=== PATIENT | female | born 1975 ===

== ENCOUNTER 2017-11-10 13:38 | Observation (INO) | payer OTHER ==
[2017-11-10 13:39] VITALS: BMI 22.3
[2017-11-10] MEDS ORDERED: Sodium Chloride 0.9% 1,000 ML IV SCH (13:45)
[2017-11-10] MEDS ORDERED: Iodixanol 320 MG/ML 100 ML BOTTLE IV ONE (13:53)
--- NOTE | 2017-11-10 14:05 | CT ---
PROCEDURE: CT HEAD WITHOUT CONTRAST. HISTORY: code stroke COMPARISON: None available. TECHNIQUE: Axial computed tomography images were obtained through the head/brain without intravenous contrast. Radiation dose: Total exam DLP = 784.72 mGy-cm. This CT exam was performed using one or more of the following dose reduction techniques: Automated exposure control, adjustment of the mA and/or kV according to patient size, and/or use of iterative reconstruction technique. FINDINGS: HEMORRHAGE: No intracranial hemorrhage. BRAIN: Weller-white matter differentiation is preserved. There is no mass, mass effect or abnormal extra-axial fluid collection. There is no territorial infarction. VENTRICLES: The ventricles are normal in size, shape and configuration. CALVARIUM: The skull base and calvarium are normal. PARANASAL SINUSES: There are retention cysts/ polyps in the left maxillary sinus. The remaining included paranasal sinuses are predominantly clear. MASTOID AIR CELLS: Predominantly clear. OTHER FINDINGS: None. IMPRESSION: No acute intracranial abnormality. If there is a persistent focal neurologic deficit and an ongoing clinical concern for acute infarction, an MRI of the brain without intravenous contrast would be a more sensitive modality for evaluation of hyperacute/acute ischemic infarction. Important findings were discussed with Dr. Beronica Cormier in the ER on 11/10/2017 at 2 p.m.
[2017-11-10] MEDS ORDERED: Magnesium Sulfate 2 gm/50 ml 2 GM/50 ML BAG IVPB ONE (14:15)
--- NOTE | 2017-11-10 14:19 | ED PDOC ---
HPI:STROKE - Time Time: 13:40 - Historian Historian: Patient - Chief Complaint Chief Complaint: Numbness (left sided) - Onset Date: 11/10/17 Time: 12:50 Onset: Hours (x 1) - Timing Timing: Improved - Location Locate right:: Face, Upper extremity (left), Lower extremity (left) - Radiation Radiation: None - TPA Positive for Contraindication: Yes Reason tPA is not being Administered: NIH SS is 1(less than 3), without disabling deficit, with rapid improvement - Notes: Notes:: 42 years old female presents to the ED complaining of left sided numbness onset 1 hour. Patient states she experienced the numbness in her left facial side, left arm and left leg. She reports improvement of of symptoms in her leg and arm but persisted numbness in her face. Patient states she woke up this morning with chest discomfort. She denies any gait problem, weakness, headache, fever, or urinary problem. PMD: non provided NIHSS Stroke Scale - Date/Time Evaluation Performed Date Performed: 11/10/17 Time Performed: 14:00 When Was NIHSS Performed: Baseline - How Severe is the Stroke Level of Consciousness: 0=Alert LOC to Questions: 0=Both comments correct LOC to commands: 0=Obeys both correctly Best Gaze: 0=Normal Visual: 0=No visual loss Facial: 0=Normal Motor Arm - Left: 0=No drift Motor Arm - Right: 0=No drift Motor Leg - Left: 0=No drift Motor Leg - Right: 0=No drift Limb Ataxia: 0=Absent Sensory: 1=Mild to moderate loss Best Language: 0=No aphasia Dysarthia: 0=Normal articulation Extinction & Inattention (Neglect): 0=Normal, no object Score: 1 rTPA Inclusion/Exclusion - Refusal of Treatment Patient Refused Treatment: No - Inclusion Criteria for Altepase Patient is 18 years or Older: Yes The Clinical Diagnosis of Ischemic Stroke That is Causing a Potentially Disabling Neurological Deficit: No Time of Onset is Well Established to be Less Than 270 Minute Before Treatment Would Begin: Yes Risk/Benefit Discussed With Patient/Family Member Present: No Past Medical History Reviewed: Historical Data, Nursing Documentation, Vital Signs Vital Signs: Last Vital Signs Temp 98.0 F 11/10/17 14:15 Pulse 67 11/10/17 14:15 Resp 16 11/10/17 14:15 BP 145/92 H 11/10/17 14:15 Pulse Ox 100 11/10/17 14:15 - Medical History PMH: No Chronic Diseases - Surgical History Surgical History: No Surg Hx - Family History Family History: States: Unknown Family Hx - Social History Current smoker - smoking cessation education provided: No Alcohol: None Drugs: Denies - Home Medications Home Medications: Ambulatory Orders Medication Instructions Recorded Multivit-Min/Iron/Folic/Lun736 1 tab PO DAILY 11/10/17 [Hair, Skin and Nails Caplet] - Allergies Allergies/Adverse Reactions: Allergies Allergy/AdvReac Type Severity Reaction Status Date / Time No Known Allergies Allergy Verified 05/14/17 08:07 Review of Systems ROS Statement: Except As Marked, All Systems Reviewed And Found Negative Constitutional: Negative for: Fever, Weakness Genitourinary Female: Negative for: Dysuria, Hematuria Neurological: Positive for: Numbness (left side). Negative for: Weakness, Headache Physical Exam - Reviewed Nursing Documentation Reviewed: Yes Vital Signs Reviewed: Yes - Physical Exam Appears: Positive for: Non-toxic, No Acute Distress Head Exam: Positive for: ATRAUMATIC, NORMOCEPHALIC Skin: Positive for: Normal Color, Warm, Dry Eye Exam: Positive for: Normal appearance, EOMI, PERRL ENT: Positive for: Normal ENT Inspection Neck: Positive for: Normal, Painless ROM, Supple Cardiovascular/Chest: Positive for: Regular Rate, Rhythm. Negative for: Murmur Respiratory: Positive for: Normal Breath Sounds. Negative for: Respiratory Distress Gastrointestinal/Abdominal: Positive for: Normal Exam, Soft. Negative for: Tenderness Back: Positive for: Normal Inspection Extremity: Positive for: Normal ROM. Negative for: Pedal Edema, Swelling Neurologic/Psych: Positive for: Alert, hemodialysis lab technician II-XII (intact), Oriented, Cerebellar Tests (intact), Gait (steady). Negative for: Motor/Sensory Deficits , Aphasia, Facial Droop - Laboratory Results Result Diagrams: 11/10/17 14:15 11/10/17 14:15 - ECG O2 Sat by Pulse Oximetry: 100 (RA) Pulse Ox Interpretation: Normal Medical Decision Making Medical Decision Making: Time: 1340 Initial impression: Left sided numbness. Differential includes but not limited to acute CVA. Initial Plan: --BBK Type and Screen --CTA Head/Neck Code stroke --CMP --Hemoglobin A1C --Lipid Panel --Troponin --CBC --PTT --Prothrombin Time --Glucose, POC Time:1400 CT Head results were negative. CT Head FINDINGS: HEMORRHAGE: No intracranial hemorrhage. BRAIN: Weller-white matter differentiation is preserved. There is no mass, mass effect or abnormal extra-axial fluid collection. There is no territorial infarction. VENTRICLES: The ventricles are normal in size, shape and configuration. CALVARIUM: The skull base and calvarium are normal. PARANASAL SINUSES: There are retention cysts/ polyps in the left maxillary sinus. The remaining included paranasal sinuses are predominantly clear. MASTOID AIR CELLS: Predominantly clear. OTHER FINDINGS: None. IMPRESSION: No acute intracranial abnormality. If there is a persistent focal neurologic deficit and an ongoing clinical concern for acute infarction, an MRI of the brain without intravenous contrast would be a more sensitive modality for evaluation of hyperacute/acute ischemic infarction. Important findings were discussed with Dr. Beronica Cormier in the ER on 2017 at 2 p.m. Time: 1354 CT Head/ Neck FINDINGS: HEAD: Right: The intracranial internal carotid artery, and anterior and middle cerebral arteries are widely patent. Left: The intracranial internal carotid artery, and anterior and middle cerebral arteries are widely patent. Posterior circulation: The visualized intracranial vertebral arteries, basilar artery and posterior cerebral arteries are widely patent. Ther is no endoluminal filling defect to suggest thrombus. There is no intracranial saccular aneurysm. There is no abnormal enhancement on the postcontrast CT. NECK: There is a three vessel aortic arch. There is no stenosis at the origins of the great vessels at the level of the aortic arch. Right Carotid: On the right, the common carotid, internal carotid and external carotid arteries are widely patent. There is no hemodynamically significant stenosis in the internal carotid artery by neck skate criteria. Left Carotid: On the left, the common carotid, internal carotid and external carotid arteries are widely patent. There is no hemodynamically significant stenosis in the internal carotid artery by NASCET criteria. The vertebral arteries are widely patent. The visualized soft tissues of the neck are normal. The visualized brain and cervical spine are within normal limits. The lung apices are clear. IMPRESSION: No evidence of endoluminal thrombus, definite significant stenosis or occlusion. No evidence of hemodynamically significant stenosis in the internal carotid artery by NASCET criteria Time:[address] Vyas who will evaluate patient by telemetry. Dr. Vyas recommends patient is not a TPA candidate since N/H stroke score of 1 is low. Additionally, mild sensation deficit is rapidly improving and is not potentially disabling. Pending reevaluation. Time: 1421 Brain MRI w/o contrast was ordered. Patient will be admitted to practice. Scribe Attestation: Documented by Vivi Martin, acting as a scribe for Beronica Cormier MD. Provider Scribe Attestation: All medical record entries made by the Scribe were at my direction and personally dictated by me. I have reviewed the chart and agree that the record accurately reflects my personal performance of the history, physical exam, medical decision making, and the department course for this patient. I have also personally directed, reviewed, and agree with the discharge instructions and disposition. Disposition - Clinical Impression Clinical Impression: Left sided numbness - Patient ED Disposition Is Patient to be Admitted: Yes Discussed With DrSheldon: Kevin Cervantes Doctor Will See Patient In The: Office Counseled Patient/Family Regarding: Studies Performed, Diagnosis, Need For Followup - Disposition Disposition Time: 02:30 Condition: FAIR - Pt Status Changed To: Hospital Disposition Of: Observation - POA Present On Arrival: None Core Measure Indicators: Code Stroke
[2017-11-10] MEDS ORDERED: Magnesium Sulfate 2 gm/50 ml 2 GM/50 ML BAG ONE (14:23)
[2017-11-10 14:25] LABS: BASO % 0.6 % (0.0-2.0); EOS # 0.1 K/uL (0.0-0.7); EOS % 1.1 % (0.0-4.0); LYMPH % 27.8 % (20.0-40.0); MEAN CELL VOLUME 86.3 fl (81.0-99.0); MEAN CORPUSCULAR HEMOGLOBIN 28.5 pg (27.0-31.0); MEAN PLATELET VOLUME 10.3 fl (7.2-11.7); MONO # 0.4 K/uL (0.0-0.8); MONO % 5.3 % (0.0-10.0); NEUT # 4.7 K/uL (1.8-7.0); NEUT % 65.2 % (50.0-75.0); NRBC % 0.1 % (0.0-0.0); RBC 4.2 Mil/uL (3.80-5.20); RED CELL DISTRIBUTION WIDTH 13.7 % (11.5-14.5); WHITE BLOOD COUNT 7.1 K/uL (4.8-10.8)
[2017-11-10 14:36] LABS: ALB/GLOB RATIO 1.2 (1.0-2.1); ALBUMIN 3.7 g/dL (3.5-5.0); ALT/SGPT 29 U/L (9-52); AST/SGOT 23 U/L (14-36); BLOOD UREA NITROGEN 13 mg/dl (7-17); CALCIUM 8.8 mg/dL (8.4-10.2); GFR AFRICAN-AMERICAN > 60; GFR NON-AFRICAN AMERICAN > 60; HDL CHOLESTEROL 33 MG/DL (30-70)
--- NOTE | 2017-11-10 14:41 | CT ---
PROCEDURE: CTA HEAD AND NECK WITH CONTRAST HISTORY: code stroke COMPARISON: None available. TECHNIQUE: Initial noncontrast head CT was performed. Subsequently, CT angiogram of the head and neck were performed after the intravenous administration of 80 mL of Omnipaque 350. Contiguous 1.5mm thick images were obtained in the axial plane of the neck. 2-D coronal and sagittal MPR images were obtained. Imaging postprocessing was performed with 3-D images also obtained. A delayed contrast head CT was also obtained. This CT exam was performed using one or more of the following dose reduction techniques: Automated exposure control, adjustment of the mA and/or kV according to patient size, and/or use of iterative reconstruction technique. Contrast dose: 622.11 Radiation dose: Total exam DLP = 99 cc Visipaque 320 mGy-cm. FINDINGS: HEAD: Right: The intracranial internal carotid artery, and anterior and middle cerebral arteries are widely patent. Left: The intracranial internal carotid artery, and anterior and middle cerebral arteries are widely patent. Posterior circulation: The visualized intracranial vertebral arteries, basilar artery and posterior cerebral arteries are widely patent. Ther is no endoluminal filling defect to suggest thrombus. There is no intracranial saccular aneurysm. There is no abnormal enhancement on the postcontrast CT. NECK: There is a three vessel aortic arch. There is no stenosis at the origins of the great vessels at the level of the aortic arch. Right Carotid: On the right, the common carotid, internal carotid and external carotid arteries are widely patent. There is no hemodynamically significant stenosis in the internal carotid artery by neck skate criteria. Left Carotid: On the left, the common carotid, internal carotid and external carotid arteries are widely patent. There is no hemodynamically significant stenosis in the internal carotid artery by NASCET criteria. The vertebral arteries are widely patent. The visualized soft tissues of the neck are normal. The visualized brain and cervical spine are within normal limits. The lung apices are clear. IMPRESSION: No evidence of endoluminal thrombus, definite significant stenosis or occlusion. No evidence of hemodynamically significant stenosis in the internal carotid artery by NASCET criteria
[2017-11-10 14:46] LABS: LDL CHOLESTEROL 88 mg/dL (0-129)
[2017-11-10 14:52] LABS: INR 1.1 (0.9-1.2); PROTHROMBIN TIME 11.9 Seconds (9.8-13.1)
[2017-11-10 14:53] LABS: PARTIAL THROMBOPLASTIN TIME 30.4 Seconds (25.6-37.1)
--- NOTE | 2017-11-10 16:15 | MRI ---
PROCEDURE: MRI BRAIN WITHOUT CONTRAST HISTORY: left sided numbness COMPARISON: Noncontrast head CT from 11/10/2017. TECHNIQUE: Multiplanar, multisequence MR images of the brain were obtained without intravenous contrast enhancement. FINDINGS: HEMORRHAGE: None DWI: No evidence of an acute or early subacute infarction. BRAIN PARENCHYMA: There are few scattered T2/FLAIR hyperintense foci in the left frontal subcortical and periventricular white matter. There is no mass, mass effect or abnormal extra-axial fluid collection. There is no territorial infarction. The midline sagittal structures are normal. VENTRICLES: There is mild age advanced global parenchymal volume loss and proportionate enlargement of the ventricles and cortical sulci. CRANIUM: There is normal bone marrow signal pattern. ORBITS: Grossly unremarkable. PARANASAL SINUSES/MASTOIDS: There are retention cysts/ polyps in the left maxillary sinus. The remaining included paranasal sinuses are clear. The mastoid air cells are clear. VASCULAR SYSTEM: There are normal signal voids in the larger intracranial arteries. OTHER FINDINGS: None. IMPRESSION: No acute intracranial abnormality. Minimal left frontal subcortical and periventricular white matter changes are strictly nonspecific. The differential considerations include migraine headache effect, gliosis, early chronic microangiopathic changes, Lyme disease, vasculitis and demyelinating disease including multiple sclerosis. Mild global parenchymal volume loss, advanced for the patient's age. Retention cysts/ polyps in the left maxillary sinus.
--- NOTE | 2017-11-10 18:46 | CP.PCM.HP ---
History of Present Illness - History of Present Illness History of Present Illness: 42 yo ,f, PMHx/o fibrocyst breast disease presents to ED c/o left side body numbness started today in the morning. Patient reports she was stressed in order to get early to work by bus and during the morning 10 am noticed chest tightness associated with left side body numbness over her left side of face, left arm below the elbow to the hand and left leg below the knee, associated with some head pressure, but not headache. She denies fever, headache, blurry vision, slurred speech , syncope, weakness, gait imbalance, recent travel, recent camping, hx/o stroke or lyme disase, rash, facial palsy ,SOB, chest pain, dysuria,n,v,abd pain. Patient reports that while on the hospital in CT scan room the numbness for left arm and leg subsided, but persists left side face numbness. On evaluation patient in [place] AAOx3 reports mild numbness left side face only.Neurologic intact PMD: [facility] last visit Dr Maria 05/08/17 PMHX: Fibrocystic breast disease Allergies: NKDA Meds: none Psurghx: Left inguinal hernia 2001, left breast biopsy 2006( benign cyst) FHX: Mother HTN, grandfather and frandmother Stroke. No other neurologic problem in family ObHx: A2 LMP: 10/18/2017 PShx: Denies ETOH,rect drugs, cig Status: Full code ED Course VS: normal except BP: 145/92 PE: AAOx3 neurologic intact, no motor deficit appreciated NIH SS is 1(less than 3), without disabling deficit, with rapid improvement Labs: CBC, CMP normal . Lipid panel: normal Imaging: CT Head w/o contrast: no intracraneal hemorrage CTA Head/neck: no evidense of endoluminal thrombus, definite stenosis or occlusion.no internal or external carotid stenosis MRI brain: minimal left frontal subcortical and periventricular white matter changes are strictly nonspecific. Differentials to consider migraine, gliosis, early chronic microangiopatic changes, lyme disease, vasculitis, demielyniting disease including multiple sclerosis Mild global parenchymal volume loss, advanced for the patient age EKG: NSR HR:69 Meds: Aspirin 81 mg. MGSO4 2 g IV Neuro [place] recommendation : will evaluate patient by telemetry. Dr. Vyas recommends patient is not a TPA candidate since N/H stroke score of 1 is low. Additionally, mild sensation deficit is rapidly improving and is not potentially disabling. Present on Admission - Present on Admission Any Indicators Present on Admission: No History of DVT/PE: No History of Uncontrolled Diabetes: No Urinary Catheter: No Decubitus Ulcer Present: No Review of Systems - Review of Systems All systems: reviewed and no additional remarkable complaints except - Cardiovascular Cardiovascular: As Per HPI Additional comments: chest tight - Respiratory Respiratory: As Per HPI - Gastrointestinal Gastrointestinal: As Per HPI - Neurological Neurological: Numbness Additional comments: left side body Past Patient History - Past Social History Alcohol: None Drugs: Denies - PSYCHIATRIC Hx Substance Use: No - SURGICAL HISTORY Hx Surgeries: No Meds Allergies/Adverse Reactions: Allergies Allergy/AdvReac Type Severity Reaction Status Date / Time No Known Allergies Allergy Verified 05/14/17 08:07 Physical Exam - Constitutional Appears: Non-toxic, Toxic, No Acute Distress - Head Exam Head Exam: ATRAUMATIC, NORMOCEPHALIC - Eye Exam Eye Exam: EOMI, Normal appearance, PERRL. absent: Nystagmus - ENT Exam ENT Exam: Mucous Membranes Moist - Neck Exam Neck exam: Positive for: Full Rom, Normal Inspection. Negative for: Lymphadenopathy - Respiratory Exam Respiratory Exam: Clear to Auscultation Bilateral. absent: Rales, Rhonchi, Wheezes - Cardiovascular Exam Cardiovascular Exam: REGULAR RHYTHM, +S1, +S2 - GI/Abdominal Exam GI & Abdominal Exam: Normal Bowel Sounds, Soft. absent: Guarding, Rebound, Tenderness - Extremities Exam Extremities exam: Positive for: normal capillary refill, normal inspection. Negative for: pedal edema, tenderness - Back Exam Back exam: NORMAL INSPECTION - Neurological Exam Neurological exam: Alert, Oriented x3 - Expanded Neurological Exam Expanded Cranial nerves: EOM's Intact: Normal, Facial Sensation: Normal, Nystagmus: Normal, Tongue Deviation: Normal Cerebellar Function: Finger to Nose: Normal Upper motor neuron: Pronator Drift: Normal Sensory exam: Lower Extremity Light Touch: Normal, Upper Extremity Light Touch: Normal Neuro motor strength exam: Left Upper Extremity: 5, Right Upper Extremity: 5, Left Lower Extremity: 5, Right Lower Extremity: 5 DTR: Patellar Left: 2+, Patellar Right: 2+ - Psychiatric Exam Psychiatric exam: Normal Affect, Normal Mood - Skin Skin Exam: Intact Results - Vital Signs Recent Vital Signs: Last Vital Signs Temp 98 F 11/10/17 17:25 Pulse 63 11/10/17 17:25 Resp 20 11/10/17 17:25 BP 131/88 11/10/17 17:25 Pulse Ox 100 11/10/17 17:25 - Labs Result Diagrams: 11/10/17 14:15 11/10/17 14:15 Labs: Laboratory Results - last 24 hr 11/10/17 11/10/17 11/10/17 13:46 14:15 14:15 WBC 7.1 RBC 4.20 Hgb 12.0 Hct 36.3 MCV 86.3 MCH 28.5 MCHC 33.0 RDW 13.7 Plt Count 195 MPV 10.3 Neut % (Auto) 65.2 Lymph % (Auto) 27.8 Lyman % (Auto) 5.3 Eos % (Auto) 1.1 Baso % (Auto) 0.6 Neut # (Auto) 4.7 Lymph # (Auto) 2.0 Lyman # (Auto) 0.4 Eos # (Auto) 0.1 Baso # (Auto) 0.0 PT INR APTT Sodium 138 Potassium 3.8 Chloride 104 Carbon Dioxide 20 L Anion Gap 18 BUN 13 Creatinine 0.7 Est GFR ( Amer) > 60 Est GFR (Non-Af Amer) > 60 POC Glucose (mg/dL) 82 Random Glucose 95 Calcium 8.8 Total Bilirubin 0.6 AST 23 ALT 29 Alkaline Phosphatase 46 Troponin I 0.0510 Total Protein 6.8 Albumin 3.7 Globulin 3.1 Albumin/Globulin Ratio 1.2 Triglycerides 102 Cholesterol 149 LDL Cholesterol Direct 88 HDL Cholesterol 33 Blood Type Antibody Screen BBK History Checked 11/10/17 11/10/17 14:15 14:25 WBC RBC Hgb Hct MCV MCH MCHC RDW Plt Count MPV Neut % (Auto) Lymph % (Auto) Lyman % (Auto) Eos % (Auto) Baso % (Auto) Neut # (Auto) Lymph # (Auto) Lyman # (Auto) Eos # (Auto) Baso # (Auto) PT 11.9 INR 1.1 APTT 30.4 Sodium Potassium Chloride Carbon Dioxide Anion Gap BUN Creatinine Est GFR ( Amer) Est GFR (Non-Af Amer) POC Glucose (mg/dL) Random Glucose Calcium Total Bilirubin AST ALT Alkaline Phosphatase Troponin I Total Protein Albumin Globulin Albumin/Globulin Ratio Triglycerides Cholesterol LDL Cholesterol Direct HDL Cholesterol Blood Type A POSITIVE Antibody Screen Negative BBK History Checked No verified bt Assessment & Plan - Assessment and Plan (Free Text) Plan: 42 yo ,f, PMHx/o fibrocyst breast disease admitted to Obs for left side body numbness Assessment/Plan 1) Left side body numbness -to r/o stroke -no focal motor deficit - NIH SS is 1(less than 3), -no risk factors for stroke -lipid profile normal -CT Head w/o contrast: no intracraneal hemorrhage - CTA Head/neck: no evidense of endoluminal thrombus, definite stenosis or occlusion.no internal or external carotid stenosis - MRI brain: minimal left frontal subcortical and periventricular white matter changes are strictly nonspecific. Mild global parenchymal volume loss, advanced for the patient age - Differentials to consider migraine, gliosis, early chronic microangiopatic changes, lyme disease, vasculitis, demielyniting disease including multiple sclerosis -s/p aspirin 81 mg ED -c/w aspiring 81 mg daily -Neurologist consult suggested: Dr roberts suggest that patient is not a TPA candidate since N/H stroke score of 1 is low. Additionally, mild sensation deficit is rapidly improving and is not potentially disabling. 2) Fibrocystic breast disease left breast -s/p left breast biopsy 2017 benign ductal epithelial hyperplasia focal -Last mammography: 04/2017 BIRAD 2 -f/u outpatient 3) DVT Prophylaxis -Lovenox 40 mg sc daily
--- NOTE | 2017-11-11 07:51 | CP.PCM.PN ---
Subjective - Date & Time of Evaluation Date of Evaluation: 11/11/17 Time of Evaluation: 09:15 - Subjective Subjective: Pt seen and examined at bedside this am. Reports resolution of L sided weakness including facial. Denies significant overngiht events. Objective - Vital Signs/Intake and Output Vital Signs (last 24 hours): Temp Pulse Resp BP Pulse Ox 97.6 F 62 18 120/72 99 11/11/17 05:22 11/11/17 05:22 11/11/17 05:22 11/11/17 05:22 11/11/17 05:22 - Medications Medications: Current Medications Acetaminophen (Tylenol 325mg Tab) 650 mg PO Q6 PRN PRN Reason: Pain, Mild (1-3) Acetaminophen (Tylenol 325mg Tab) 650 mg PO Q6 PRN PRN Reason: Fever >100.4 F Aspirin (Ecotrin) 81 mg PO DAILY [facility] Atorvastatin Calcium (Lipitor) 10 mg PO DAILY [facility] Enoxaparin Sodium (Lovenox) 40 mg SC DAILY [facility] PRN Reason: Protocol Ibuprofen (Motrin Tab) 600 mg PO Q6 PRN PRN Reason: Pain, moderate (4-7) Ondansetron HCl (Zofran Inj) 4 mg IVP Q6 PRN PRN Reason: Nausea/Vomiting - Labs Labs: 11/10/17 14:15 11/10/17 14:15 PT 11.9 Seconds (9.8-13.1) 11/10/17 14:25 INR 1.1 (0.9-1.2) 11/10/17 14:25 APTT 30.4 Seconds (25.6-37.1) 11/10/17 14:25 - Constitutional Appears: Well, No Acute Distress - Eye Exam Eye Exam: EOMI - ENT Exam ENT Exam: Mucous Membranes Moist - Neck Exam Neck Exam: Full ROM - Respiratory Exam Respiratory Exam: Clear to Ausculation Bilateral, NORMAL BREATHING PATTERN. absent: Wheezes - Cardiovascular Exam Cardiovascular Exam: REGULAR RHYTHM, +S1, +S2 - GI/Abdominal Exam GI & Abdominal Exam: Soft, Normal Bowel Sounds. absent: Tenderness - Neurological Exam Neurological Exam: Alert, Awake, CN II-XII Intact, Oriented x3 - Psychiatric Exam Psychiatric exam: Normal Affect, Normal Mood Assessment and Plan - Assessment and Plan (Free Text) Plan: 42 yo ,f, PMHx/o fibrocyst breast disease admitted for left sided body numbness Assessment/Plan Left side body numbness -no focal motor deficit -NIH SS is 1(less than 3), -no risk factors for stroke -lipid profile normal -CT Head w/o contrast: no intracraneal hemorrhage -CTA Head/neck: no evidense of endoluminal thrombus, definite stenosis or occlusion.no internal or external carotid stenosis -MRI brain: minimal left frontal subcortical and periventricular white matter changes are strictly nonspecific. Mild global parenchymal volume loss, advanced for the patient age -Differentials to consider migraine, gliosis, early chronic microangiopatic changes, lyme disease, vasculitis, demielyniting disease including multiple sclerosis -c/w aspirin 81 mg daily -Neurologist consult suggested: Dr cueto suggest that patient is not a TPA candidate since N/H stroke score of 1 is low. Additionally, mild sensation deficit is rapidly improving and is not potentially disabling. Possible TIA. Recommends ECHO with bubble study to r/o PFO. asa 81 daily. f/u OP in 6 months. -Swallow eval: pass -PT/OT: 2) Fibrocystic breast disease left breast -s/p left breast biopsy 2017 benign ductal epithelial hyperplasia focal -Last mammography: 04/2017 [facility] 2 -f/u outpatient 3) DVT Prophylaxis -Lovenox 40 mg sc daily
[2017-11-11] MEDS: Enoxaparin 40 mg Syringe SC SCH (08:02)
[2017-11-11] MEDS: Potassium Chloride 20 mEq ER Tab PO SCH (12:32)
--- NOTE | 2017-11-11 15:13 | CP.PCM.CON ---
History of Present Illness - History of Present Illness History of Present Illness: Ms. Delbert Adrian is a 42-year-old woman, with no significant past medical history, who presented to the ED after left sided numbness and pressure on the left side. This resolved completely and now the patient is back to baseline. The duration of the numbness was about 20 minutes. The pressure in her head lasted for a few hours. She has no other complaints. CT and CTA of the head/ neck were normal. Review of Systems - Review of Systems All systems: reviewed and no additional remarkable complaints except Past Patient History - Past Medical History & Family History Past Medical History?: Yes - Past Social History Alcohol: None Drugs: Denies - MUSCULOSKELETAL/RHEUMATOLOGICAL Hx Falls: No - PSYCHIATRIC Hx Substance Use: No - SURGICAL HISTORY Hx Surgeries: No Meds Allergies/Adverse Reactions: Allergies Allergy/AdvReac Type Severity Reaction Status Date / Time No Known Allergies Allergy Verified 05/14/17 08:07 - Medications Medications: Current Medications Acetaminophen (Tylenol 325mg Tab) 650 mg PO Q6 PRN PRN Reason: Pain, Mild (1-3) Acetaminophen (Tylenol 325mg Tab) 650 mg PO Q6 PRN PRN Reason: Fever >100.4 F Aspirin (Ecotrin) 81 mg PO DAILY [facility] Last Admin: 11/11/17 08:01 Dose: 81 mg Atorvastatin Calcium (Lipitor) 10 mg PO DAILY [facility] Enoxaparin Sodium (Lovenox) 40 mg SC DAILY [facility] PRN Reason: Protocol Last Admin: 11/11/17 08:02 Dose: 40 mg Ibuprofen (Motrin Tab) 600 mg PO Q6 PRN PRN Reason: Pain, moderate (4-7) Ondansetron HCl (Zofran Inj) 4 mg IVP Q6 PRN PRN Reason: Nausea/Vomiting Potassium Chloride (K-Dur 20 Meq Er Tab) 20 meq PO DAILY [facility] Stop: 11/15/17 23:59 Last Admin: 11/11/17 12:32 Dose: 20 meq Physical Exam - Neurological Exam Neurological exam: Alert, CN II-XII Intact, Normal Gait, Oriented x3, Reflexes Normal Results - Vital Signs Recent Vital Signs: Last Vital Signs Temp 98.0 F 11/11/17 12:23 Pulse 65 11/11/17 12:23 Resp 20 11/11/17 12:23 BP 113/69 11/11/17 12:23 Pulse Ox 99 11/11/17 12:23 - Labs Result Diagrams: 11/10/17 14:15 11/10/17 14:15 Labs: Laboratory Results - last 24 hr 11/10/17 14:15 Hemoglobin A1c 5.3 Assessment & Plan (1) Left sided numbness Assessment and Plan: This is now resolved, and may have been a TIA. MRI of the brain did not show any acute findings. However, there were a few tiny areas of T2 hyperintensity that could be due to migraine. I recommend follow up in 6 months with outpatient neurology. Continue aspirin 81 mg daily and obtain an echocardiogram with bubble study to rule out PFO. PT/OT eval is recommended. Case management consult. Thank you. Status: Acute Priority: Medium
[2017-11-11 19:25] VITALS: O2SAT 98
[2017-11-12 00:05] VITALS: RESP 18
[2017-11-12] MEDS: Potassium Chloride 20 mEq ER Tab PO SCH (08:12)
[2017-11-12] MEDS: Enoxaparin 40 mg Syringe SC SCH (08:13)
[2017-11-12 08:21] VITALS: BP 125/73; PULSE 61; TEMP 97.9
--- NOTE | 2017-11-12 09:22 | CP.PCM.PN ---
Subjective - Date & Time of Evaluation Date of Evaluation: 11/12/17 Objective - Vital Signs/Intake and Output Vital Signs (last 24 hours): Temp Pulse Resp BP Pulse Ox 97.9 F 61 18 125/73 98 11/12/17 08:20 11/12/17 08:20 11/12/17 08:20 11/12/17 08:20 11/12/17 08:20 - Medications Medications: Current Medications Acetaminophen (Tylenol 325mg Tab) 650 mg PO Q6 PRN PRN Reason: Pain, Mild (1-3) Acetaminophen (Tylenol 325mg Tab) 650 mg PO Q6 PRN PRN Reason: Fever >100.4 F Aspirin (Ecotrin) 81 mg PO DAILY [facility] Last Admin: 11/12/17 08:13 Dose: 81 mg Atorvastatin Calcium (Lipitor) 10 mg PO DAILY [facility] Last Admin: 11/12/17 08:13 Dose: 10 mg Enoxaparin Sodium (Lovenox) 40 mg SC DAILY [facility] PRN Reason: Protocol Last Admin: 11/12/17 08:13 Dose: 40 mg Ibuprofen (Motrin Tab) 600 mg PO Q6 PRN PRN Reason: Pain, moderate (4-7) Ondansetron HCl (Zofran Inj) 4 mg IVP Q6 PRN PRN Reason: Nausea/Vomiting Potassium Chloride (K-Dur 20 Meq Er Tab) 20 meq PO DAILY [facility] Stop: 11/15/17 23:59 Last Admin: 11/12/17 08:12 Dose: 20 meq - Labs Labs: 11/10/17 14:15 11/10/17 14:15 PT 11.9 Seconds (9.8-13.1) 11/10/17 14:25 INR 1.1 (0.9-1.2) 11/10/17 14:25 APTT 30.4 Seconds (25.6-37.1) 11/10/17 14:25
--- NOTE | 2017-11-12 10:54 | CARD ---
APPROVED REPORT EXAM: Three-dimensional, Two-dimensional and M-mode echocardiogram with Doppler and color Doppler. Other Information Quality : GoodRhythm : NSR INDICATION PFO Echo Enhancing Agent Indication: Rule Out Septal Defect Agent/Amount Used: Agitated Saline 2D DIMENSIONS IVSd0.64 (0.7-1.1cm)LVDd4.07 (3.9-5.9cm) LVOT Diameter1.90 (1.8-2.4cm)PWd0.83 (0.7-1.1cm) IVSs1.02 (0.8-1.2cm)LVDs2.34 (2.5-4.0cm) FS (%) 42.6 %PWs0.97 (0.8-1.2cm) M-Mode DIMENSIONS Left Atrium (MM)2.65 (2.5-4.0cm)IVSd0.82 (0.7-1.1cm) Aortic Root3.04 (2.2-3.7cm)LVDd4.84 (4.0-5.6cm) Aortic Cusp Exc.1.49 (1.5-2.0cm)PWd0.80 (0.7-1.1cm) IVSs1.29 cmFS (%) 35 % LVDs3.17 (2.0-3.8cm)PWs1.06 cm Mitral Valve MV E Vgkivhfy41.0cm/sMV DECEL [id number] A Gdydwxat32.9cm/s MV ASX83odN/A ratio2.1MVA (PHT)4.07cm2 TDI Lateral E' Peak V19.23cm/sMedial E' Peak V12.96cm/sE/Lateral E'5.1 E/Medial E'7.6 Pulmonary Valve PV Peak Vbytnrdj06.3cm/s LEFT VENTRICLE The left ventricle is normal in size. There is normal left ventricular wall thickness. The left ventricular function is normal. The left ventricular ejection fraction is - 65%. There is normal LV segmental wall motion. The left ventricular diastolic function is normal. No left ventricle thrombus noted on this study. There is no ventricular septal defect visualized. There is no left ventricular aneurysm. There is no mass noted in the left ventricle. RIGHT VENTRICLE The right ventricle is normal size. There is normal right ventricular wall thickness. The right ventricular systolic function is normal. ATRIA The left atrium size is normal. There is no thrombus suspected in the left atrium. The right atrium size is normal. The interatrial septum is intact with no evidence for an atrial septal defect. No ASD was seen on either color doppler or agitated saline studies. AORTIC VALVE The aortic valve is normal in structure. No aortic regurgitation is present. There is no aortic valvular stenosis. MITRAL VALVE The mitral valve is normal in structure. There is no evidence of mitral valve prolapse. There is no mitral valve stenosis. Mitral regurgitation is trace. TRICUSPID VALVE The tricuspid valve is normal in structure. There is trace tricuspid regurgitation. There is no tricuspid valve prolapse or vegetation. There is no tricuspid valve stenosis. PULMONIC VALVE The pulmonic valve is not well visualized. There is no pulmonic valvular regurgitation. GREAT VESSELS The aortic root is normal in size. The IVC collapses <50% with inspiration. PERICARDIAL EFFUSION The pericardium appears normal. There is no pleural effusion. <Conclusion> The left ventricle is normal in size and wall thickness. The left ventricular function is normal. The left ventricular ejection fraction is - 65%. The left atrium, right ventricle or right atrium were normal in size. The mitral, aortic and tricuspid valves are normal. There is trace mitral regurgitation and trace tricuspid regurgitation. Note: No atrial septal defect was seen on either color doppler or agitated saline bubble studies.
--- NOTE | 2017-11-13 14:27 | CP.PCM.DIS ---
Provider - Provider Date of Admission: 11/10/17 14:49 Attending physician: Madelaine Broussard MD Time Spent in preparation of Discharge (in minutes): 20 Diagnosis - Discharge Diagnosis (1) TIA (transient ischemic attack) Status: Acute Hospital Course - Lab Results Lab Results: Most Recent Lab Values WBC 7.1 K/uL (4.8-10.8) 11/10/17 14:15 RBC 4.20 Mil/uL (3.80-5.20) 11/10/17 14:15 Hgb 12.0 g/dL (12.0-16.0) 11/10/17 14:15 Hct 36.3 % (34.0-47.0) 11/10/17 14:15 MCV 86.3 fl (81.0-99.0) 11/10/17 14:15 MCH 28.5 pg (27.0-31.0) 11/10/17 14:15 MCHC 33.0 g/dL (33.0-37.0) 11/10/17 14:15 RDW 13.7 % (11.5-14.5) 11/10/17 14:15 Plt Count 195 K/uL (130-400) 11/10/17 14:15 MPV 10.3 fl (7.2-11.7) 11/10/17 14:15 Neut % (Auto) 65.2 % (50.0-75.0) 11/10/17 14:15 Lymph % (Auto) 27.8 % (20.0-40.0) 11/10/17 14:15 Bradford % (Auto) 5.3 % (0.0-10.0) 11/10/17 14:15 Eos % (Auto) 1.1 % (0.0-4.0) 11/10/17 14:15 Baso % (Auto) 0.6 % (0.0-2.0) 11/10/17 14:15 Neut # (Auto) 4.7 K/uL (1.8-7.0) 11/10/17 14:15 Lymph # (Auto) 2.0 K/uL (1.0-4.3) 11/10/17 14:15 Bradford # (Auto) 0.4 K/uL (0.0-0.8) 11/10/17 14:15 Eos # (Auto) 0.1 K/uL (0.0-0.7) 11/10/17 14:15 Baso # (Auto) 0.0 K/uL (0.0-0.2) 11/10/17 14:15 PT 11.9 Seconds (9.8-13.1) 11/10/17 14:25 INR 1.1 (0.9-1.2) 11/10/17 14:25 APTT 30.4 Seconds (25.6-37.1) 11/10/17 14:25 Sodium 138 mmol/l (132-148) 11/10/17 14:15 Potassium 3.8 MMOL/L (3.6-5.0) 11/10/17 14:15 Chloride 104 mmol/L (98-107) 11/10/17 14:15 Carbon Dioxide 20 mmol/L (22-30) L 11/10/17 14:15 Anion Gap 18 (10-20) 11/10/17 14:15 BUN 13 mg/dl (7-17) 11/10/17 14:15 Creatinine 0.7 mg/dl (0.7-1.2) 11/10/17 14:15 Est GFR ( Amer) > 60 11/10/17 14:15 Est GFR (Non-Af Amer) > 60 11/10/17 14:15 POC Glucose (mg/dL) 82 mg/dL (65-110) 11/10/17 13:46 Random Glucose 95 mg/dL (65-105) 11/10/17 14:15 Hemoglobin A1c 5.3 % (4.2-6.5) 11/10/17 14:15 Calcium 8.8 mg/dL (8.4-10.2) 11/10/17 14:15 Phosphorus 4.1 mg/dl (2.5-4.5) 11/12/17 05:35 Magnesium 2.2 MG/DL (1.6-2.3) 11/12/17 05:35 Total Bilirubin 0.6 mg/dl (0.2-1.3) 11/10/17 14:15 AST 23 U/L (14-36) 11/10/17 14:15 ALT 29 U/L (9-52) 11/10/17 14:15 Alkaline Phosphatase 46 U/L (38-126) 11/10/17 14:15 Troponin I 0.0510 ng/mL (0.00-0.120) 11/10/17 14:15 Total Protein 6.8 G/DL (6.3-8.2) 11/10/17 14:15 Albumin 3.7 g/dL (3.5-5.0) 11/10/17 14:15 Globulin 3.1 gm/dL (2.2-3.9) 11/10/17 14:15 Albumin/Globulin Ratio 1.2 (1.0-2.1) 11/10/17 14:15 Triglycerides 102 mg/DL (0-149) 11/10/17 14:15 Cholesterol 149 mg/dL (0-199) 11/10/17 14:15 LDL Cholesterol Direct 88 mg/dL (0-129) 11/10/17 14:15 HDL Cholesterol 33 MG/DL (30-70) 11/10/17 14:15 Blood Type A POSITIVE 11/10/17 14:15 Antibody Screen Negative 11/10/17 14:15 BBK History Checked No verified bt 11/10/17 14:15 - Hospital Course Hospital Course: 42 yo F no significant pmhx presented to ED with L sided body numbness. Symptoms resolved. Evaluated by Dr. Vyas. possible TIA. CT head, CTA head and neck; MRI brain. NIHSS 1. ECHO with bubble study w/o PFO. Pt d/c home to f/u with pmd and with Dr. Vyas. Discharge Exam - Head Exam Head Exam: ATRAUMATIC, NORMOCEPHALIC - Eye Exam Eye Exam: EOMI - Neck Exam Neck exam: Full Rom - Respiratory Exam Respiratory Exam: Clear to PA & Lateral, NORMAL BREATHING PATTERN. absent: Wheezes - Cardiovascular Exam Cardiovascular Exam: REGULAR RHYTHM, +S1, +S2 - GI/Abdominal Exam GI & Abdominal Exam: Normal Bowel Sounds, Soft. absent: Tenderness - Neurological Exam Neurological exam: Alert, CN II-XII Intact, Oriented x3 - Psychiatric Exam Psychiatric exam: Normal Affect, Normal Mood Discharge Plan - Discharge Medications Prescriptions: Aspirin [Ecotrin] 81 mg PO DAILY #30 tabec Atorvastatin [Lipitor] 10 mg PO DAILY #30 tab - Follow Up Plan Condition: STABLE Disposition: HOME/ ROUTINE Instructions: Transient Ischemic Attack (DC)
== END 2017-11-12 12:28 | disposition home or self-care (01) ==
LOC: H.ER 13:38 → H.ERHOLD 14:49 → H.TEL 17:18
PROVIDERS: ADMIT Family Medicine Geriatric Medicine; ATTEND Family Medicine Geriatric Medicine
DX: G45.9 Transient cerebral ischemic attack, unspecified (principal); N60.19 Diffuse cystic mastopathy of unspecified breast; Z82.3 Family history of stroke; Z79.82 Long term (current) use of aspirin
CPT/HCPCS: 36415; 70450; 70496; 70498; 70551; 80053; 80061; 81025; 82948; 83036; 83735; 84100; 84484; 85025; 85610; 85730; 86850; 86900; 93306; 96372; 96374; 97116; 97161; 97165; 97530; 99285; G0378; G8978; G8979; G8980; G8987; G8988; G8989; J1650; J7040; Q9967